=== PATIENT | female | born 1955 | race African-American/Black ===

== ENCOUNTER 2020-05-29 12:13 | Emergency (ER) | payer OTHER ==
[2020-05-29 12:52] VITALS: TEMP 96.5; BMI 34.0
[2020-05-29] MEDS ORDERED: SODIUM CHLORIDE 1,000 ML IV STA (13:13)
--- NOTE | 2020-05-29 13:51 | PDOC ---
History of Present Illness - General Chief Complaint: Pain Stated Complaint: SENT BY PCP(ABD. PAIN) Time Seen by Provider: 05/29/20 12:59 History Source: Patient Exam Limitations: No Limitations - History of Present Illness Initial Comments: 05/29/20 13:47 Patient is a 64-year-old female with a history of hypertension and COPD who presents to the ED with complaint of diffuse upper abdominal pain that is radiating to her back for several weeks. She states it got much worse about 1 week ago. She states she feels as if her abdomen is bloated. The patient states that eating food actually makes her pain better. She denies any fevers or chills. She denies any nausea or vomiting. She admits to normal bowel movements. The patient states that she spoke with her primary doctor and was told to go to the emergency department for evaluation. She has not taken anything for her symptoms. She denies any dysuria or hematuria. The patient has a history of a complete hysterectomy. The patient also admits to having thrombocytopenia possibly secondary to lupus which she gets injections for. She states she has not required an injection in a few months because her platelets have been 50 or above. If her platelets drop below 50 then she is required to have an injection. Past History - Medical History Allergies/Adverse Reactions: Allergies Allergy/AdvReac Type Severity Reaction Status Date / Time No Known Allergies Allergy Verified 05/29/20 12:45 - Psycho-Social/Smoking History Smoking History: Never smoked - Substance Abuse Hx (Audit-C & DAST Scrn) How often the patient has a drink containing alcohol: Never Score: In Men: 4 or > Positive; In Women: 3 or > Positive: 0 Screen Result (Pos requires Nsg. Audit-10AR): Negative Review of Systems - Review of Systems Comments:: 05/29/20 13:49 - Review of Systems Able to Perform ROS?: Yes Constitutional: No: Fever, Chills, Loss of Appetite, Night Sweats, Weakness HEENTM: No: Eye Pain, Vision changes, Ear Pain, Throat Pain, Throat Swelling, Mouth Pain, Difficulty Swallowing Respiratory: No: Cough, Shortness of Breath, Wheezing, Sputum Production Cardiac (ROS): No: Chest Pain, Chest Tightness, Palpitations, Irregular Heart Beat, Edema ABD/GI: No: Nausea, Vomiting, Diarrhea; positive: Abdominal pain and bloating : No Dysuria, No Hematuria, No Frequency, No Urgency Musculoskeletal: No: Muscle Pain, Back Pain, Joint Pain, Muscle Weakness, Neck Pain Integumentary: No: Lesions, Rash Neurological: No: Headache, Numbness, Tingling, Weakness, Speech Difficulties *Physical Exam - Vital Signs Last Vital Signs Temp Pulse Resp BP Pulse Ox 96.5 F L 78 18 135/89 100 05/29/20 12:46 05/29/20 12:46 05/29/20 12:46 05/29/20 12:46 05/29/20 12:46 - Physical Exam 05/29/20 13:49 - Physical Exam General Appearance: Nourished, Appropriately Dressed, No Distress HEENT: EOMI, Normal Voice, Hearing Grossly Normal Neck: Supple, No Lymphadenopathy (R), No Lymphadenopathy (L), No Rigidity, No Decreased range of motion Respiratory/Chest: Lungs Clear, Normal Breath Sounds. No Respiratory Distress, No Accessory Muscle Use Cardiovascular: Regular Rhythm, Regular Rate, S1, S2 Gastrointestinal/Abdominal: Normal Bowel Sounds, Soft. Significant tenderness to the right side of the abdomen both upper and lower. Minimal epigastric te nderness to palpation. Positive CVA tenderness bilaterally. Abdomen is nontympanitic. Large scar to the mid abdomen appreciated. Musculoskeletal: Normal Inspection. No Decreased Range of Motion Extremity: Normal Capillary Refill, Normal Inspection Integumentary: Normal Color, Dry. No Rash Neurologic: staffing account manager II-XII NML intact, Fully Oriented, Alert, Normal Mood/Affect, Normal Response ED Treatment Course - LABORATORY CBC & Chemistry Diagram: 05/29/20 13:25 05/29/20 13:25 - RADIOLOGY Radiology Studies Ordered: Category Date Time Status ABDOMEN & PELVIS CT WITH CONTR [CT] Stat CT Scan 05/29/20 13:29 Ordered Medical Decision Making - Medical Decision Making 05/29/20 13:50 Assessment: Patient is a 64-year-old female with abdominal and bilateral flank pain for greater than 1 week. Plan: -Saline lock and labs ordered -1 L of NS ordered -CT scan with IV contrast ordered -Will reassess 05/29/20 15:12 The patient is currently at CT scan for abd/pelvis CT. 05/29/20 15:[address] scan has been read as negative for acute pathology by radiology. I have made the patient aware that she may need to follow-up with GI for further evaluation and possibly colonoscopy. She can follow-up with her primary doctor within 1 to 2 days for repeat evaluation. She has been made aware that her platelets are 50 her doctor know of her results. She understands and agrees with this treatment plan and she is stable for discharge. Discharge - Discharge Information Problems reviewed: Yes Clinical Impression/Diagnosis: Abdominal pain Qualifiers: Abdominal location: generalized Qualified Code(s): R10.84 - Generalized abdominal pain Condition: Stable Disposition: HOME - Follow up/Referral Referrals: ON STAFF,NOT [Primary Care Provider] - Deepak Wiggins DO [Staff Physician] - 2 Days - Patient Discharge Instructions Patient Printed Discharge Instructions: DI for Abdominal Pain-Adult Additional Instructions: Get plenty of rest and drink plenty of fluids. Follow-up with your primary doctor within 1 to 2 days for repeat evaluation. Follow-up with a GI doctor as you may be required to have a colonoscopy for further evaluation and treatment. - Post Discharge Activity
[2020-05-29 14:01] LABS: BASO % 0.2 % (0-2.0); EOS % 1.8 % (0-4.5); LYMPH % 30.3 % (8-40); MCH 25.9 pg (25.7-33.7); MCHC 31.6 g/dl (32.0-36.0); MEAN CELL VOLUME 82.1 fl (80-96); MEAN PLT VOLUME 15.4 fl (7.5-11.1); MONO % 11.2 % (3.8-10.2); NEUT % 56.5 % (42.8-82.8); PLATELET COUNT 50 K/MM3 (134-434); RDW 14.9 % (11.6-15.6); WHITE BLOOD COUNT 9.3 K/mm3 (4.0-10.0)
[2020-05-29 14:31] LABS: ALBUMIN 3.6 g/dl (3.4-5.0); ALK PHOS 57 U/L (45-117); ANION GAP 6 MMOL/L (8-16); BILIRUBIN,TOTAL 0.6 mg/dL (0.2-1); BLOOD UREA NITROGEN 14.5 mg/dL (7-18); CALCIUM 9.1 mg/dL (8.5-10.1); CHLORIDE 102 mmol/L (98-107); CO2 31 mmol/L (21-32); CREATININE 1.2 mg/dL (0.55-1.3); GLUCOSE,RANDOM 94 mg/dL (74-106); LIPASE 176 U/L (73-393); POTASSIUM 3.6 mmol/L (3.5-5.1); SGOT/AST 31 U/L (15-37); SGPT/ALT 22 U/L (13-61); SODIUM 139 mmol/L (136-145)
--- OUTSIDE RECORDS SUMMARY | 2020-05-29 14:52 | XMS ---
:1955 Author Organization [facility] Support Name Relationship Address Phone RE Unavailable Unavailable Unavailable RE Unavailable Unavailable Unavailable [employer]AL SERVICE EMPLOYER [address] [facility] [phone] [place] [address] Re-disclosure Warning The records that you are about to access may contain information from federally- assisted alcohol or drug abuse programs. If such information is present, then the following federally mandated warning applies: This information has been disclosed to you from records protected by federal confidentiality rules (42 CFR part 2). The federal rules prohibit you from making any further disclosure of this information unless further disclosure is expressly permitted by the written consent of the person to whom it pertains or as otherwise permitted by 42 CFR part 2. A general authorization for the release of medical or other information is NOT sufficient for this purpose. The Federal rules restrict any use of the information to criminally investigate or prosecute any alcohol or drug abuse patient.The records that you are about to access may contain highly sensitive health information, the redisclosure of which is protected by Article 27-F of the [facility] Public Health law. If you continue you may haveaccess to information: Regarding HIV / AIDS; Provided by facilities licensed or operated by the [facility] Office of Mental Health; or Provided by the [facility] Office for People With Developmental Disabilities. If such information is present, then the following [facility] mandated warning applies: This information has been disclosed to you from confidential records which are protected by state law. State law prohibits you from making any further disclosure of this information without the specific written consent of the person to whom it pertains, or as otherwise permitted by law. Any unauthorized further disclosure in violation of state law may result in a fine or snf sentence or both. A general authorization for the release of medical or other information is NOT sufficient authorization for further disclosure. Insurance Providers Payer name Policy type Policy ID Covered Covered green party's Policy P blake / Coverage green party ID relationship to [employer] type [employer] H[employer] MEDICARE [id number] VIP 1
[2020-05-29 15:24] LABS: EPI CELLS 13 /uL (0-25.1); HYALINE CASTS 2 /uL (0-3.1); PH,URINE 5.5 (5.0-8.0); URINE APPEARANCE CLEAR; URINE BACTERIA 89 /uL (0-1359); URINE BILIRUBIN NEGATIVE (NEGATIVE); URINE COLOR YELLOW; URINE GLUCOSE (UA) NEGATIVE (NEGATIVE); URINE KETONE TRACE (NEGATIVE); URINE LEUK ESTERASE 1+ (NEGATIVE); URINE NITRITE NEGATIVE (NEGATIVE); URINE PROTEIN TRACE (NEGATIVE); URINE RBC 7 /uL (0-23.9); URINE WBC 37 /uL (0-25.8)
[2020-05-29 15:56] VITALS: BP 132/73; PULSE 76
--- NOTE | 2020-05-30 10:03 | EKG ---
Test Reason : Blood Pressure : / mmHG Vent. Rate : 064 BPM Atrial Rate : 064 BPM P-R Int : 242 ms QRS Dur : 104 ms QT Int : 430 ms P-R-T Axes : 080 072 063 degrees QTc Int : 443 ms SINUS RHYTHM WITH 1ST DEGREE A-V BLOCK OTHERWISE NORMAL ECG NO PREVIOUS ECGS AVAILABLE Confirmed by Anselmo Min ([id number]) on 05/30/2020 10:03:05 AM Referred By: Confirmed By:Anselmo Min
== END 2020-05-29 15:56 | disposition home or self-care (01) ==
LOC: JER 12:13 → SUPCPDRO 12:13 → JER 15:56
PROC: 3E0337Z Introduction of Electrolytic and Water Balance Substance into Peripheral Vein, Percutaneous Approach (ICD-10-PCS; principal; 2020-05-29)
DX: R10.84 Generalized abdominal pain (principal)
CPT/HCPCS: 36415; 74177-TC; 80053; 81003; 82550; 82553; 83690; 84484; 85025; 87086; 93005; 93010; 99285-25; Q9967

== ENCOUNTER 2020-07-27 14:29 | Emergency (ER) | payer OTHER ==
[2020-07-27 14:41] VITALS: BP 145/77; PULSE 68; TEMP 97.9; BMI 36.9
== END 2020-07-27 17:00 | disposition home or self-care (01) ==
LOC: JERFT 14:29
DX: R06.02 Shortness of breath (principal)
CPT/HCPCS: 71045-TC-FY; 99285-25; C9803; U0003

== ENCOUNTER 2021-06-19 17:47 | Emergency (ER) | payer OTHER ==
[2021-06-19 18:34] VITALS: BP 143/90; PULSE 75; TEMP 98.5; BMI 36.6
[2021-06-19] MEDS ORDERED: LIDOCAINE 5% TOPICAL PATCH TP ONE (19:34)
[2021-06-19] MEDS ORDERED: ACETAMINOPHEN 325 MG TABLET (FP) PO ONE (19:42)
[2021-06-19] MEDS ORDERED: LIDOCAINE 5% TOPICAL PATCH ONE (19:59)
[2021-06-19] MEDS ORDERED: ACETAMINOPHEN 325 MG TABLET (FP) ONE (19:59)
[2021-06-19] MEDS ORDERED: LACTATED RINGERS SOLUTION 1000 ML INFUS.BAG IV ONE (20:01)
[2021-06-19 21:10] LABS: BASO % 0.4 % (0-2.0); EOS % 1.8 % (0-4.5); HEMATOCRIT 40.4 % (32.4-45.2); MCH 25.7 pg (25.7-33.7); MCHC 32.2 g/dl (32.0-36.0); MEAN CELL VOLUME 79.7 fl (80-96); MEAN PLT VOLUME 12.9 fl (7.5-11.1); NEUT % 54.8 % (42.8-82.8); RBC 5.06 M/mm3 (3.60-5.2); WHITE BLOOD COUNT 8.2 K/mm3 (4.0-10.0)
[2021-06-19 21:31] LABS: CALCIUM 9.1 mg/dL (8.5-10.1)
[2021-06-19 21:32] LABS: ALBUMIN 3.5 g/dl (3.4-5.0); BLOOD UREA NITROGEN 12.5 mg/dL (7-18)
[2021-06-19 21:35] LABS: CREATININE 0.9 mg/dL (0.55-1.3)
[2021-06-19 21:37] LABS: BILIRUBIN,TOTAL 0.4 mg/dL (0.2-1)
[2021-06-19 21:59] LABS: PLATELET COUNT 38 10^3/uL (134-434); PLATELET ESTIMATE DECREASED
[2021-06-19] MEDS ORDERED: LIDOCAINE PATCH REMOVAL MC SCH (22:00)
[2021-06-19 23:25] LABS: EPI CELLS 6 /uL (0-25.1); HYALINE CASTS 0 /uL (0-3.1); PH,URINE 5.5 (5.0-8.0); URINE APPEARANCE CLEAR; URINE BACTERIA 114 /uL (0-1359); URINE BILIRUBIN NEGATIVE (NEGATIVE); URINE COLOR YELLOW; URINE GLUCOSE (UA) NEGATIVE (NEGATIVE); URINE KETONE NEGATIVE (NEGATIVE); URINE LEUK ESTERASE TRACE (NEGATIVE); URINE NITRITE NEGATIVE (NEGATIVE); URINE PROTEIN 1+ (NEGATIVE); URINE RBC 12 /uL (0-23.9); URINE WBC 13 /uL (0-25.8)
== END 2021-06-20 00:03 | disposition home or self-care (01) ==
LOC: JER 17:47
DX: M79.10 Myalgia, unspecified site (principal); M54.9 Dorsalgia, unspecified
CPT/HCPCS: 36415; 71275-TC; 80053; 81003; 85025; 87086; 93005; 93010; 99284-25; Q9967

== ENCOUNTER 2022-12-01 11:03 | Emergency (ER) | payer OTHER ==
[2022-12-01 11:12] VITALS: BP 170/94; PULSE 58; RESP 18; TEMP 97.5; BMI 36.8
[2022-12-01 12:28] LABS: INR 1.04 (0.83-1.09); PROTHROMBIN TIME (PATIENT) 12.1 SEC (9.7-13.0)
[2022-12-01 12:31] LABS: ACTIVATED PTT 29.4 SECONDS (25.2-36.5)
[2022-12-01 12:50] LABS: ALBUMIN 3.8 g/dl (3.4-5.0); BLOOD UREA NITROGEN 8.4 mg/dL (7-18)
[2022-12-01 12:53] LABS: BASO % 0.7 % (0-2.0); HEMATOCRIT 43.1 % (32.4-45.2); HEMOGLOBIN 13.8 GM/dL (10.7-15.3); LYMPH % 28.1 % (8-40); MCH 26.1 pg (25.7-33.7); MCHC 32.1 g/dl (32.0-36.0); MEAN CELL VOLUME 81.1 fl (80-96); MEAN PLT VOLUME 12.6 fl (7.5-11.1); MONO % 12.3 % (3.8-10.2); NEUT % 51.9 % (42.8-82.8); RBC 5.31 M/mm3 (3.60-5.2); RDW 14.9 % (11.6-15.6); WHITE BLOOD COUNT 9.6 K/mm3 (4.0-10.0)
[2022-12-01 12:53] LABS: CALCIUM 9.4 mg/dL (8.5-10.1)
[2022-12-01 12:55] LABS: BILIRUBIN,TOTAL 0.6 mg/dL (0.2-1)
[2022-12-01 13:18] LABS: PLATELET COUNT 35 10^3/uL (134-434)
== END 2022-12-01 14:49 | disposition home or self-care (01) ==
LOC: JERFT 11:03
DX: M25.561 Pain in right knee (principal); R07.9 Chest pain, unspecified
CPT/HCPCS: 36415; 71046-TC-FY; 73562-TC-RT-FY; 80053; 84484; 85025; 85610; 85730; 93005; 93010; 93971-TC; 99285-25

== ENCOUNTER 2023-10-10 22:02 | Emergency (ER) | payer OTHER ==
[2023-10-10 22:19] VITALS: BP 104/52; PULSE 72; RESP 20; TEMP 99.6; BMI 36.0
[2023-10-10] MEDS ORDERED: guaiFENesin 200 MG/10 ML 10 ML UNIT-DOSE CUPS PO ONE (23:23)
[2023-10-10] MEDS ORDERED: ALBUTEROL SO4 2.5/IPRATROPIUM 0.5 INH SOL 3 ML VIAL.NEB. NEB ONE ×2 (23:33→23:44)
[2023-10-10] MEDS ORDERED: guaiFENesin/D-METHORPHAN HB 10 ML UNIT-DOSE CUPS ONE (23:43)
== END 2023-10-11 02:00 | disposition home or self-care (01) ==
LOC: JER 22:02
PROC: 3E0F7GC Introduction of Other Therapeutic Substance into Respiratory Tract, Via Natural or Artificial Opening (ICD-10-PCS; principal; 2023-10-10)
DX: R05.9 Cough, unspecified (principal); J34.89 Other specified disorders of nose and nasal sinuses; Z20.822 Contact with and (suspected) exposure to COVID-19
CPT/HCPCS: 0241U-QW; 71046-TC-FY; 94640; 99284-25